=== PATIENT | female | born 1995 | race Caucasian/White ===

== ENCOUNTER 2016-12-01 00:13 | Inpatient (IN) | payer BC ==
[~2016-12-01] VITALS: Ht 152.4 cm; Wt 53.2 kg
[2016-12-01 00:22] VITALS: O2SAT 99
--- NOTE | 2016-12-01 00:44 | EMERGENCY ROOM VISIT NOTE ---
History Report prepared by Alfredito: Luz Chowdhury Under the Supervision of: Dr. Charmaine Licea D.O. First contact with patient: 00:19 Chief Complaint: ALCOHOL OVERDOSE Stated Complaint: ALCOHOL OVERDOSE History of Present Illness The patient is a 21 year old female who presents to the Emergency Room with complaints of an alcohol overdose that occurred prior to arrival. Per nursing staff, the patient was found outside the [facility] this evening arguing with a male friend. They note that the patient was brought to the emergency department and was found to have a Suboxone tablet in her purse that was not prescribed to her. The history is limited secondary to alcohol intoxication. Source of History: patient History Limited By: intoxication (alcohol) Onset: prior to arrival Position: other (global) Quality: other (alcohol overdose) Review of Systems The history is limited secondary to alcohol intoxication. Past Medical & Surgical Medical Problems: (1) Ovarian cyst Family History FHx: diabetes FHx: hypertension Social History Smoking Status: Former Smoker Alcohol Use: occasionally Drug Use: other Marital Status: in relationship Occupation Status: unemployed Current/Historical Medications No Active Prescriptions or Reported Meds Allergies Coded Allergies: No Known Allergies (Verified , 12/01/16) Physical Exam Vital Signs Date Time Temp Pulse Resp B/P Pulse Ox O2 Delivery O2 Flow Rate FiO2 12/01/16 05:16 100 16 109/55 97 Room Air 12/01/16 04:11 86 12/01/16 02:53 91 20 98 Room Air 12/01/16 01:48 89 18 114/78 96 12/01/16 00:23 90 12/01/16 00:22 36.9 92 17 120/84 99 Room Air 12/01/16 00:22 99 Room Air Physical Exam General: Unresponsive. HEENT: Head - normocephalic and atraumatic Pupils are 6 mm and sluggishly reactive to light. Extraocular eye muscles are intact, and sclera are anicteric. Nose - moist nasal mucosa without discharge. Mouth - moist buccal mucosa. Oropharynx is nonerythematous and there is no tonsillar exudate or edema noted. Neck: Supple; no JVD, nuchal rigidity, cervical lymphadenopathy. Heart: Regular rate and rhythm. There is a normal S1 and S2 with no murmurs, clicks, or gallops appreciated. Lungs: Snoring respirations, with no wheezes, rales, or rhonchi. Abdomen: Soft, completely nontender, nondistended, with good bowel sounds. There are no palpable pulsatile masses or hepatosplenomegaly. There is no guarding, rigidity, or rebound noted. Extremities: No evidence of cyanosis, clubbing, or edema. There are easily palpable peripheral pulses. Skin: warm and dry with good turgor and no rashes. Medical Decision & Procedures Laboratory Results 12/01/16 00:24 Test 12/01/16 00:24 12/01/16 01:55 Anion Gap 12.0 mmol/L (3-11) Est Creatinine Clear Calc Drug Dose 11.2 ml/min Estimated GFR () 141.5 Estimated GFR (Non- 122.1 BUN/Creatinine Ratio 8.4 (10-20) Calcium Level 8.4 mg/dl (8.5-10.1) Ethyl Alcohol mg/dL 318.0 mg/dl (0-3) Urine Opiates Screen NEG (NEG) Urine Methadone, Qualitative NEG (NEG) Urine Barbiturates NEG (NEG) Urine Phencyclidine (PCP) Level NEG (NEG) Ur Amphetamine/Methamphetamine NEG (NEG) MDMA (Ecstasy) Screen NEG (NEG) Urine Benzodiazepines Screen NEG (NEG) Urine Cocaine Metabolite NEG (NEG) Urine Marijuana (THC) NEG (NEG) Laboratory results per my review. ED Course 0029: Past medical records reviewed. The patient was evaluated in room A9B. A complete history and physical exam was performed. The patient was placed in the prone position to avoid aspiration. Laboratory studies were drawn as above. She was observed on the ekg monitor tech and pulse oximeter. She had no episodes of hypoxia. 0206: I reevaluated the patient and she is now wide awake. She states that she considers herself an alcoholic and has no interest in going to rehab at this time. The patient admits to taking Suboxone this evening that was not her's and states that she did it in attempt to hurt herself. She will be evaluated by [facility] when she is medically clear. 0250: The patient is currently awake, eating, and drinking. 0450: The patient is back to sleep at this time. She is hemodynamically stable. 0715: The patient was signed out to Dr. Colin at change of shift pending [facility] evaluation. Medical Decision The patient is a 21 year old female who presents to the ED with an alcohol overdose. Differential diagnosis includes alcohol overdose, drug intoxication, head injury, hypoglycemia Labs: alcohol 318, glucose 83, normal renal function The patient considers herself an alcoholic. She was drinking tonight and also abusing Suboxone. When questioned about this, she admitted that she may been trying to harm herself. She will remain here in the emergency department until she is more sober and can be evaluated by psychiatry. Impression Primary Impression: Alcohol overdose Additional Impression: Suicidal ideation Scribe Attestation The scribe's documentation has been prepared under my direction and personally reviewed by me in its entirety. I confirm that the note above accurately reflects all work, treatment, procedures, and medical decision making performed by me. Departure Information Dispostion Still a Patient Prescriptions No Active Prescriptions or Reported Meds Referrals Dm Dumont D.O. (PCP) Patient Instructions My [facility] [address] Problem Qualifiers
[2016-12-01 01:05] LABS: CREATININE 0.7 mg/dl (0.60-1.20)
[2016-12-01 01:06] LABS: BUN/CREATININE RATIO 8.4 (10-20); CALCIUM 8.4 mg/dl (8.5-10.1); POTASSIUM 3.4 mmol/L (3.5-5.1)
[2016-12-01 02:17] LABS: BENZODIAZEPINE, URINE NEG (NEG); COCAINE,URINE NEG (NEG); PHENCYCLIDINE, URINE NEG (NEG)
[2016-12-01 13:10] VITALS: O2SAT 97
[2016-12-01 14:32] LABS: ACETAMINOPHEN < 2 ug/ml (10-30); BUN/CREATININE RATIO 7.1 (10-20); CREATININE 0.85 mg/dl (0.60-1.20); POTASSIUM 4.1 mmol/L (3.5-5.1)
[2016-12-01 14:34] LABS: PREG INTERNAL NEGATIVE QC NEG CLEAR BACKGROUND; PREG INTERNAL POSITIVE QC POS CONTROL LINE
[2016-12-01 14:44] LABS: BASO % 0.1 %; BASO ABS # 0.01 K/uL (0-0.2); COMPLETE YES; HEMATOCRIT 47.4 % (37-47); IG% 0.3 %; LYMPH ABS # 1.53 K/uL (1.2-3.4); MEAN CELL VOLUME 91.7 fL (80-100); MEAN CORPUSCULAR HEMOGLOBIN 31.9 pg (25-34); MEAN CORPUSCULAR HGB CONC 34.8 g/dl (32-36); MEAN PLATELET VOLUME 9.1 fL (7.4-10.4); MONO % 8.8 %; NEUT % 69.8 %; PLATELET COUNT 327 K/uL (130-400); RED BLOOD COUNT 5.17 M/uL (4.2-5.4); WHITE BLOOD COUNT 7.64 K/uL (4.8-10.8)
[2016-12-01 14:49] LABS: ALB/GLOB RATIO 1.3 (0.9-2); THYROID STIMULATING HORMONE 0.645 uIu/ml (0.300-4.500)
--- NOTE | 2016-12-01 14:54 | EMERGENCY ROOM VISIT NOTE ---
ED Visit Note Patient signed out to me awaiting psychiatric evaluation. Mental health services have seen the patient from [facility]. She is being admitted to [facility]. is a 201.
[2016-12-01] MEDS ORDERED: NURSING VERBAL MED ORDER ONE ×3 (15:00→19:45)
[2016-12-01] MEDS ORDERED: ACETAMINOPHEN 325 MG TAB PO PRN (15:15)
[2016-12-01] MEDS ORDERED: MAGNESIUM HYDROXIDE SUSP 30 ML UDC PO PRN (15:15)
[2016-12-01] MEDS ORDERED: ALUMINUM/MAGNESIUM SUSP 30 ML UDC PO PRN (15:15)
[2016-12-01] MEDS ORDERED: BISMUTH SUBSALICYLATE PER ML OMNICELL CHARGE PO PRN (15:15)
[2016-12-01] MEDS ORDERED: SODIUM CHLORIDE 0.65% NA SOLN 45 ML (OCEAN) PRN (15:15)
[2016-12-01 16:01] VITALS: BP 111/78; PULSE 77; TEMP 37.2; Ht 152.4 cm; Wt 53.2 kg
[2016-12-01] MEDS ORDERED: CHLORDIAZEPOXIDE 25 MG CAP PO ONE (19:00)
[2016-12-01] MEDS: GABAPENTIN 600 MG TAB PO SCH (19:24)
[2016-12-01] MEDS: NICOTINE 21 MG/24 HR TDSY EXT SCH (20:37)
[2016-12-01 21:13] VITALS: BP 132/94; PULSE 68; TEMP 36.8
[2016-12-01] MEDS: hydrOXYzine HCL 25 MG TAB PO PRN (22:31)
[2016-12-02 07:03] VITALS: BP_SYST 131; BP_SYST 142; BP_DIAS 91; BP_DIAS 95; PULSE 66; PULSE 67; TEMP 36.4
[2016-12-02] MEDS: GABAPENTIN 600 MG TAB PO SCH ×3 (08:46→21:30)
[2016-12-02] MEDS: CHLORDIAZEPOXIDE 25 MG CAP PO SCH ×2 (08:46→14:36)
[2016-12-02] MEDS: NICOTINE 21 MG/24 HR TDSY EXT SCH (08:47)
[2016-12-02 09:12] VITALS: BP 130/90; PULSE 70; TEMP 36.6
[2016-12-02] MEDS ORDERED: SERTRALINE HCL 50 MG TAB PO ONE (10:15)
[2016-12-02] MEDS ORDERED: IBUPROFEN 600 MG TAB PO PRN (10:15)
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
[2016-12-02 14:36] VITALS: BP 130/96; PULSE 95; TEMP 36.4
[2016-12-02] MEDS ORDERED: LORAZEPAM 1 MG TAB PO PRN (16:45)
[2016-12-02 17:07] VITALS: BP 131/97; PULSE 80; TEMP 36.8
[2016-12-02 20:36] VITALS: BP 137/102; PULSE 76; TEMP 36.6
[2016-12-02] MEDS: CHLORHEXIDINE GLUCONATE 0.12% 480 ML MT SCH (21:29)
[2016-12-02] MEDS: hydrOXYzine HCL 25 MG TAB PO PRN (21:34)
[2016-12-03 07:05] VITALS: BP 121/78; PULSE 60; TEMP 36.6
[2016-12-03 08:29] VITALS: BP 130/89; TEMP 36.7
[2016-12-03] MEDS: NICOTINE 21 MG/24 HR TDSY EXT SCH (08:33)
[2016-12-03] MEDS: GABAPENTIN 600 MG TAB PO SCH ×2 (08:34→14:10)
[2016-12-03] MEDS: SERTRALINE HCL 50 MG TAB PO SCH (08:35)
[2016-12-03] MEDS: CHLORHEXIDINE GLUCONATE 0.12% 480 ML MT SCH ×2 (08:35→21:17)
[2016-12-03] MEDS: hydrOXYzine HCL 25 MG TAB PO PRN (12:23)
[2016-12-03 12:26] VITALS: BP 121/84; PULSE 70; TEMP 36.8
--- NOTE | 2016-12-03 13:03 | Psychiatric Progress Notes ---
Progress Note Date of Service Dec 03, 2016. Interval History Krysta Peck is a 21-year-old woman from [place], [place], admitted to our unit voluntarily with severe depression, polysubstance abuse, and feeling unable to be safe outside of the hospital. Chief Complaint "Pretty good, feeling better". Subjective Patient was seen & assessed interval progress reviewed with nursing. Staff report she has been attending programming, interacting appropriately with peers , and spending free time watching TV. Although scoring on the alcohol withdrawal protocol, she has not required when necessary medication. She is taking the gabapentin taper as ordered. She told nursing staff last night that even though she initially agreed to rehabilitation and referrals were made, she doesn't want to go and thinks the staff here are "blowing smoke up my ass." She had a family meeting with her father by phone today. The treatment recommendations were discussed, and the patient gave multiple excuses as to why she no longer will go to inpatient rehabilitation. She states that she is less anxious and feeling better after 2 doses of Zoloft, so does not think she will be tempted by drugs and alcohol after discharge. She became angry when encouraged to consider rehabilitation, rolling her eyes and accusing her father of not trusting her or believing in her. A great deal of time was devoted to this topic and the patient demonstrated very poor insight regarding her addictions. She signed releases for outpatient treatment providers. Her father confirmed that she does not of access to guns either at his home or her apartment. He is planning to come to [place] this weekend to visit with her potentially help with her discharge. The patient was seen shortly after the family meeting, and stated she was "anxious and irritable, they were pushing rehabilitation on me." She continues to complain that "no one trusts me , they don't believe in me," while at the same time demonstrating poor understanding of her addiction and a limited plan for staying sober outside the hospital. She says "I'm 21 and it's up to me, every once trying to push rehabilitation on me, but I wanted to outpatient. If I get on the proper medication I'll be fine, they just don't have trusted me at all." Attempted to reframe the concerns about her ability to stay sober and review data on success rates of different types of substance abuse treatment, with inpatient treatment clearly getting the best results. Her response was "I don't want to do it and I 'm not to do it, so appeared here to convince me, don't bother." She denies feeling suicidal today, but states she doesn't feel ready to leave, and wants to "work on my anxiety." We spent some time discussing what to expect with respect to worsening anxiety and sleep in the short-term while she is newly sober. Sleep Information Total Hours of Sleep: 6.50 Meal Information Percent of Breakfast Consumed: 100 Percent of Lunch Consumed: 100 Percent of Dinner Consumed: 60 Mental Status Exam During interview pt is: alert and oriented Appearance: appropriately dressed, disheveled Eye contact is: fair Motor behavior is: steady gait & station, no abnormal motor movements Speech: other (loud and angry) Affect: irritable Mood is: anxious Thought process: goal directed Thought content: cognitive distortions (centered around all the reasons why she doesn't need to go to rehabilitation) Suicidal thought are: denied Homicidal thoughts are: denied Hallucinations: denies auditory, denies visual Insight: poor Judgement: poor Impression A 21-year-old woman admitted to our unit voluntarily with depression, substance use and suicidality. The primary recommendation is for rehab for her polysubstance dependence, but she is refusing, saying she wants to go home and managed in her own way. She has also been using IV heroin and so has been screened for hepatitis B and C, but we will refer her to the [facility] for HIV or PCP testing post-discharge, as it will require follow-up. Although she is concerned that she has bipolar disorder, her periods of high energy and other symptoms are occurring during periods when she is using drugs, so we will therefore treat this as unipolar depression and she was started on sertraline on admission. He was counseled regarding the potential for activation if there is an underlying bipolar disorder. Her gums are extremely inflamed from poor dental hygiene, so have ordered Peridex mouthwash twice daily and encourage the use of ibuprofen p.r.n. At this time, however, she requires inpatient mental health treatment due to the severity of her condition and risk for self-harm if discharged. DIAGNOSES: 1. Major depressive disorder, recurrent, severe, without psychotic features. 2. Polysubstance dependence (opiates, cannabis, and alcohol). 3. Gingivitis. 4. IV drug use Plan (1) Suicidal ideation Every 15 minute checks for safety Encourage participation in unit groups and programming Work on healthy coping skills and her discharge safety plan Recommend abstinence from recreational drug use and alcohol Recommend avoidance of controlled substances, medications that are addictive, abusable, or dangerous in overdose (2) Depression 12/02 - Start Zoloft 25 mg today and increasing to 50 tomorrow. - Q. 15 minute checks for safety. - Encourage participation in group and individual counseling. - Family meeting with father. - Assist the patient to learn and utilize additional healthy coping strategies. - The patient will need psychiatric aftercare. 12/03 - Family meeting held with father. - Patient now refusing rehab, wants only outpatient treatment. (3) Alcohol overdose Resolved (4) Alcohol use disorder Monitor and treat for withdrawal Recommend inpatient rehab Recovery protocol. AWSS protocol with gabapentin taper and when necessary Ativan for symptoms of withdrawal 12/03 The patient's AUDIT score suggests problematic drinking (Zone III WHO). Brief intervention was offered Intervention was greater than 5 min in length. Brief interventions include: 1. Assess Readiness to Quit, 2. Advise: Help Patient to Reduce or Abstain from Alcohol, 3. Agree: Set Specific, Feasible Goals, 4. Assist: Anticipate barriers, Problem-Solving Solutions. Social work to 5. Arrange: Referrals to appropriate treatment. Summary of intervention: The patient is in contemplation stage with regards to transtheoretical model of change. The patient is advised to decrease alcohol consumption due to depressant effects and risk of interactions with prescription medications. The patient agreed to outpatient treatment, is refusing recommendations for inpatient rehabilitation, and will be provided with recovery materials to continue to education self on how to cope with their condition without drinking. (5) Cannabis abuse Rec rehab (6) Opiate abuse, continuous Abuses Suboxone, heroin, fentanyl REc rehab (7) Stimulant abuse Abuses meth, cocaine, ecstasy Rec milad (8) Gingivitis Peridex mouthwash b.i.d. and Ibuprofen p.r.n. for pain. Visit Code E&M Code: 27951 Data Vital Signs Last 24 Hrs: Date Time Temp Pulse Resp B/P Pulse Ox O2 Delivery O2 Flow Rate FiO2 12/03/16 12:26 36.8 70 16 121/84 70 12/03/16 08:29 36.7 14 130/89 12/03/16 07:05 36.6 60 16 121/78 60 12/02/16 20:36 36.6 76 14 137/102 12/02/16 17:07 36.8 80 14 131/97 12/02/16 14:36 36.4 95 16 130/96 Meds Administered Last 24 Hrs: Meds Administered (Past 24Hrs) Medications (Trade) Dose Ordered Sig/Bri Route Start Time Stop Time Status Last Admin Dose Admin Hydroxyzine HCl (Vistaril Tab) 50 mg HSZ PRN PO 12/01/16 15:15 12/31/16 15:14 12/02/16 21:34 50 MG Hydroxyzine HCl (Vistaril Tab) 25 mg Q4H PRN PO 12/01/16 15:15 12/31/16 15:14 12/03/16 12:23 25 MG Gabapentin (Neurontin Tab) 600 mg TID PO 12/01/16 19:00 12/03/16 14:01 12/03/16 08:34 600 MG Chlordiazepoxide (Librium Cap) 50 mg Taper TID PO 12/02/16 09:00 12/02/16 16:40 DC 12/02/16 14:36 50 MG Chlordiazepoxide (Librium Cap) 50 mg 1900 ONCE PO 12/01/16 19:00 12/02/16 16:40 DC 12/01/16 19:17 50 MG Nicotine (Nicoderm Cq 21MG Patch) 1 patch QAM EXT 12/01/16 20:00 12/31/16 19:59 12/03/16 08:33 1 PATCH Miscellaneous (Remove Nicoderm Patch) 1 ea QAM N/A 12/02/16 09:00 01/01/17 08:59 12/02/16 08:47 1 EA Sertraline HCl (Zoloft Tab) 50 mg QAM PO 12/03/16 09:00 01/02/17 08:59 12/03/16 08:35 50 MG Sertraline HCl (Zoloft Tab) 25 mg 1015 ONCE PO 12/02/16 10:15 12/02/16 10:32 DC 12/02/16 11:16 25 MG Chlorhexidine Gluconate (Peridex Oral Soln) 15 ml BID MT 12/02/16 22:00 01/01/17 21:59 12/03/16 08:35 15 ML
[2016-12-03 17:18] VITALS: BP_SYST 127; BP_SYST 130; BP_DIAS 90; BP_DIAS 91; PULSE 72; PULSE 86; TEMP 36.8
[2016-12-03] MEDS: GABAPENTIN 300 MG CAP PO SCH (21:16)
[2016-12-03 21:20] VITALS: BP_SYST 132; BP_SYST 134; BP_DIAS 88; BP_DIAS 99; PULSE 86; TEMP 36.6
[2016-12-03] MEDS ORDERED: NURSING VERBAL MED ORDER ONE (21:45)
[2016-12-03] MEDS ORDERED: LORAZEPAM 1 MG TAB PO STA (21:47)
[2016-12-04 07:06] VITALS: BP_SYST 131; BP_SYST 143; BP_DIAS 88; BP_DIAS 95; PULSE 73; PULSE 78; TEMP 36.6
[2016-12-04] MEDS: NICOTINE 21 MG/24 HR TDSY EXT SCH (07:55)
[2016-12-04] MEDS: CHLORHEXIDINE GLUCONATE 0.12% 480 ML MT SCH (07:56)
[2016-12-04] MEDS: SERTRALINE HCL 50 MG TAB PO SCH (07:58)
[2016-12-04] MEDS: GABAPENTIN 300 MG CAP PO SCH ×3 (07:58→18:20)
[2016-12-04 08:06] VITALS: BP 119/87; PULSE 83; TEMP 37
[2016-12-04] MEDS: hydrOXYzine HCL 25 MG TAB PO PRN (08:09)
[2016-12-04] MEDS ORDERED: NRN300 PO (09:17)
[2016-12-04] MEDS ORDERED: ZLF50 PO (09:17)
[2016-12-04] MEDS ORDERED: ATR25 PO (09:17)
--- NOTE | 2016-12-04 09:30 | Discharge Instructions ---
Discharge Information Report Includes Report will include the: Discharge Instructions & Summary Admission Admission Date / Time: Dec 01, 2016 at 15:03 Reason for Admission: Suicidal Ideation Discharge Discharge Diagnosis / Problem: Depressive disorder NOS, alcohol dependence Condition at Discharge: Good Discharge Goals Goal(s): Decrease discomfort, Improve disease control, Prevent Disease Progression Activity Recommendations Activity Limitations: resume your previous activity . Instructions / Follow-Up Instructions / Follow-Up . SPECIAL CARE INSTRUCTIONS: 1. Follow through with your scheduled aftercare appointments. If unable to keep an appointment, please call to reschedule. 2. Take your medication only as prescribed. Medication should not be changed or stopped without the approval of your doctor. In the event of worsening symptoms or concerns about side effects, contact your doctor immediately. 3. Utilize new healthy coping skills, anger management skills, and stress management skills learned during your hospitalization. Journal feelings and process them with a support person. Identify stressors or situations that may result in relapse, deterioration or inappropriate behaviors and develop a plan to deal with those issues. 4. If your coping skills are ineffective and you are in crisis, contact your outpatient providers for direction. If unable to reach your providers, please call the CAN HELP LINE AT or go to the closest Emergency Room. 5. Avoid alcohol and un-prescribed drugs. 6. You have been provided with the Mental Health Advance Directives Pamphlet for your review. AFTERCARE APPOINTMENTS: * Please call your insurance company prior to your scheduled appointment to confirm your aftercare providers are covered. Take your insurance information to your appointments. . Discharge / Aftercare Planning Psychiatrist: Name: Dr Sung Phone Number: [phone] Date of Appointment: Dec 28, 2016 Time of Appointment: 12:00 Appointment Notes: [address] [facility]- take mom's , SS and ID card w you Therapist: Name Of Therapist: Karin Gomez [facility] Phone Number: [phone] Date of Appointment: Dec 11, 2016 Time of Appointment: 830 am [facility]ment [facility] [place] . Follow-Up Care Plan for Follow-Up Care: The patient will have prompt follow up with her psychiatrist and with Karin for substance use counseling. Current Hospital Diet Patient's current hospital diet: Regular Diet Discharge Diet Recommended Diet: Regular Diet Procedures Procedures Performed: No Pending Studies Pending Studies at Discharge: No Medical Emergencies . Who to Call and When: Medical Emergencies: For questions or emergencies related to your hospital stay, please contact the Inpatient Behavioral Health Unit at [phone]. A process control operator is on-call 03/05 for the Behavioral Health Unit for emergencies At any time you feel your situation is an emergency, you may also call 911 immediately. . Non-Emergent Contact Non-Emergency issues call your: Psychiatrist, Therapist Advance Directives Existing Advance Directive: No Do You Have an Existing Mental: No Existing Living Will: No Existing Power of Cafeteria Cashier: No Advance Directives Info Given: To Pt/S.O. Discharge Summary Admission HPI Per the Admitting provider: Please see attached H&P Hospital Course (1) Suicidal ideation Every 15 minute checks for safety Encourage participation in unit groups and programming Work on healthy coping skills and her discharge safety plan Recommend abstinence from recreational drug use and alcohol Recommend avoidance of controlled substances, medications that are addictive, abusable, or dangerous in overdose (2) Depression 12/02 - Start Zoloft 25 mg today and increasing to 50 tomorrow. - Q. 15 minute checks for safety. - Encourage participation in group and individual counseling. - Family meeting with father. - Assist the patient to learn and utilize additional healthy coping strategies. - The patient will need psychiatric aftercare. 12/03 - Family meeting held with father. - Patient now refusing rehab, wants only outpatient treatment. (3) Alcohol overdose Resolved (4) Alcohol use disorder Monitor and treat for withdrawal Recommend inpatient rehab Recovery protocol. AWSS protocol with gabapentin taper and when necessary Ativan for symptoms of withdrawal 12/03 The patient's AUDIT score suggests problematic drinking (Zone III WHO). Brief intervention was offered Intervention was greater than 5 min in length. Brief interventions include: 1. Assess Readiness to Quit, 2. Advise: Help Patient to Reduce or Abstain from Alcohol, 3. Agree: Set Specific, Feasible Goals, 4. Assist: Anticipate barriers, Problem-Solving Solutions. Social work to 5. Arrange: Referrals to appropriate treatment. Summary of intervention: The patient is in contemplation stage with regards to transtheoretical model of change. The patient is advised to decrease alcohol consumption due to depressant effects and risk of interactions with prescription medications. The patient agreed to outpatient treatment, is refusing recommendations for inpatient rehabilitation, and will be provided with recovery materials to continue to education self on how to cope with their condition without drinking. (5) Cannabis abuse Rec rehab (6) Opiate abuse, continuous Abuses Suboxone, heroin, fentanyl REc rehab (7) Stimulant abuse Abuses meth, cocaine, ecstasy Rec milad (8) Gingivitis Peridex mouthwash b.i.d. and Ibuprofen p.r.n. for pain. Risk Factors Assessment : Yes /single/: Yes Higher / Fall in social status: No Access to guns: No Health problems: No Mental Health Diagnoses: Yes Substance use disorders: Yes Previous attempt: No Previous psychiatric stay: No Smoker: Yes Protective Factors Assessment Congregation beliefs: No : No Responsible for young children: No Employed: No Stable relationships: No Supportive family: Yes Day of Discharge Assessment COURSE OF HOSPITALIZATION: During the patient's 3 day stay, she was started on Zoloft 50 mg daily for mood and anxiety. She tolerated this without side effect. We also put her on the AWSS protocol for alcohol withdrawal using gabapentin. Her withdrawal symptoms were minimal. She did score several times requiring when necessary Ativan as well. Her primary recommendation during her stay was to go to rehabilitation which the patient consistently refused. She said that she felt she had confidence in giving up the medicines herself and would not be dissuaded from this. She was willing to participate in an IOP. Family meeting was held with her father during her stay. Her father was very forward about his believes that she needed to go to rehabilitation. Even with this encouragement she was unwilling to consider. She did feel like the meeting went well and she felt like her father was supportive. She denied any further suicidal thinking throughout her stay. Over the 3 days her mood gradually improved, she felt more in control. She did have anxiety throughout her stay likely recurrent related to both alcohol withdrawal and to her difficult social situation which includes recent breakup with the boyfriend, and being unemployed. DAY OF DISCHARGE ASSESSMENT: The patient is requesting discharge today. Her mood has been consistently good and without suicidal thinking. She denies withdrawal symptoms this morning although did score last evening on the AWSS scale and required Ativan. We will send her home on a gabapentin taper. I have encouraged her to continue to think about going to rehabilitation and in the event she decides to do so, to call her insurance to see who is in network and then call those facilities directly. She has worked on a safety plan here in the hospital. She will have her father pick her up today to transport her home. She voices commitment to remaining sober from drugs and alcohol and will participate in an IOP that will start next week. Today she is casually and appropriately dressed and groomed. Eye contact is good. Affect is restricted. Gait and station are within normal limits. Speech is of normal rate volume and tone. Thoughts are organized and goal directed. She denies thought disorder in the form of hallucinations or delusions. Recent and remote memory are intact per conversation. Intelligence is estimated to be average. Insight and judgment are improved over admission. Laboratory 12/01/16 13:09 Red Blood Count 5.17, Mean Corpuscular Volume 91.7, Mean Corpuscular Hemoglobin 31.9, Mean Corpuscular Hemoglobin Concent 34.8, Mean Platelet Volume 9.1, Neutrophils (%) (Auto) 69.8, Lymphocytes (%) (Auto) 20.0, Monocytes (%) (Auto) 8.8, Eosinophils (%) (Auto) 1.0, Basophils (%) (Auto) 0.1, Neutrophils # (Auto) 5.33, Lymphocytes # (Auto) 1.53, Monocytes # (Auto) 0.67, Eosinophils # (Auto) 0.08, Basophils # (Auto) 0.01 12/01/16 13:09 Test 12/01/16 01:55 12/01/16 13:00 12/01/16 13:06 12/01/16 13:09 Urine Opiates Screen NEG (NEG) Urine Methadone, Qualitative NEG (NEG) Urine Barbiturates NEG (NEG) Urine Phencyclidine (PCP) Level NEG (NEG) Ur Amphetamine/Methamphetamine NEG (NEG) MDMA (Ecstasy) Screen NEG (NEG) Urine Benzodiazepines Screen NEG (NEG) Urine Cocaine Metabolite NEG (NEG) Urine Marijuana (THC) NEG (NEG) Hepatitis B Surface Antigen NEG (NEG) Hepatitis C Antibody NEG (NEG) Ethyl Alcohol mg/dL 6.0 mg/dl (0-3) White Blood Count 7.64 K/uL (4.8-10.8) Red Blood Count 5.17 M/uL (4.2-5.4) Hemoglobin 16.5 g/dL (12.0-16.0) Hematocrit 47.4 % (37-47) Mean Corpuscular Volume 91.7 fL (80-100) Mean Corpuscular Hemoglobin 31.9 pg (25-34) Mean Corpuscular Hemoglobin Concent 34.8 g/dl (32-36) Platelet Count 327 K/uL (130-400) Mean Platelet Volume 9.1 fL (7.4-10.4) Neutrophils (%) (Auto) 69.8 % Lymphocytes (%) (Auto) 20.0 % Monocytes (%) (Auto) 8.8 % Eosinophils (%) (Auto) 1.0 % Basophils (%) (Auto) 0.1 % Neutrophils # (Auto) 5.33 K/uL (1.4-6.5) Lymphocytes # (Auto) 1.53 K/uL (1.2-3.4) Monocytes # (Auto) 0.67 K/uL (0.11-0.59) Eosinophils # (Auto) 0.08 K/uL (0-0.5) Basophils # (Auto) 0.01 K/uL (0-0.2) RDW Standard Deviation 42.5 fL (36.4-46.3) RDW Coefficient of Variation 12.7 % (11.5-14.5) Immature Granulocyte % (Auto) 0.3 % Immature Granulocyte # (Auto) 0.02 K/uL (0.00-0.02) Anion Gap 10.0 mmol/L (3-11) Est Creatinine Clear Calc Drug Dose 9.3 ml/min Estimated GFR () 111.9 Estimated GFR (Non- 96.6 BUN/Creatinine Ratio 7.1 (10-20) Calcium Level 9.0 mg/dl (8.5-10.1) Total Bilirubin 0.3 mg/dl (0.2-1) Aspartate Amino Transf (AST/SGOT) 42 U/L (15-37) Alanine Aminotransferase (ALT/SGPT) 68 U/L (12-78) Alkaline Phosphatase 84 U/L (45-117) Total Protein 7.2 gm/dl (6.4-8.2) Albumin 4.0 gm/dl (3.4-5.0) Globulin 3.2 gm/dl (2.5-4.0) Albumin/Globulin Ratio 1.3 (0.9-2) Thyroid Stimulating Hormone (TSH) 0.645 uIu/ml (0.300-4.500) Human Chorionic Gonadotropin, Qual NEG (NEG) Salicylates Level 2.2 mg/dl (2.8-20) Acetaminophen Level < 2 ug/ml (10-30) Total Time Total Time Spent (min): Greater than 30 minutes Total Time Included: examination of the patient, discharge planning, medication reconciliation, communication with other providers Tobacco Cessation at Discharge FDA approved Prescription: patient refused
[2016-12-04 11:09] VITALS: BP 123/88; PULSE 88; TEMP 36.9
[2016-12-04] MEDS ORDERED: LORAZEPAM 1 MG TAB PO ONE ×2 (11:15→16:30)
[2016-12-04 12:39] VITALS: BP 128/86; PULSE 91; TEMP 36.6
[2016-12-04] MEDS ORDERED: GABAPENTIN 300 MG CAP PO SCH ×3 (13:45→22:00)
[2016-12-04] MEDS ORDERED: SERTRALINE HCL 50 MG TAB PO SCH (13:45)
[2016-12-04 16:02] VITALS: BP 139/89; PULSE 116; TEMP 36.9
[2016-12-04] MEDS ORDERED: NURSING VERBAL MED ORDER ONE (16:30)
[2016-12-05] MEDS ORDERED: SERTRALINE HCL 50 MG TAB PO SCH (09:00)
== END 2016-12-04 18:40 | disposition home or self-care (01) | DRG 885 ==
LOC: EDBD 00:13 → C.EDA 00:14 → C.MHU 15:03
PROVIDERS: ADMIT Psychiatry & Neurology Psychiatry; ATTEND Psychiatry & Neurology Psychiatry
DX: F33.2 Major depressive disorder, recurrent severe without psychotic features (principal); R45.851 Suicidal ideations; F11.20 Opioid dependence, uncomplicated; F41.9 Anxiety disorder, unspecified; T51.0X2A Toxic effect of ethanol, intentional self-harm, initial encounter; Y92.89 Other specified places as the place of occurrence of the external cause; F10.229 Alcohol dependence with intoxication, unspecified; Y90.8 Blood alcohol level of 240 mg/100 ml or more; K05.10 Chronic gingivitis, plaque induced; F12.20 Cannabis dependence, uncomplicated; F17.210 Nicotine dependence, cigarettes, uncomplicated; Z81.8 Family history of other mental and behavioral disorders; Z81.1 Family history of alcohol abuse and dependence

== ENCOUNTER 2017-04-22 18:30 | Emergency (ER) | payer BC ==
[~2017-04-22] VITALS: Ht 152.4 cm; Wt 56.9 kg
[~2017-04-22 18:30] MED LIST: ATR25 PO; NRN300 PO; ZLF50 PO
[2017-04-22 18:32] VITALS: TEMP 36.7; Ht 152.4 cm; Wt 56.9 kg
[2017-04-22] MEDS ORDERED: KETOROLAC TROMETHAMINE 30 MG/ML VIAL IV STA (18:47)
[2017-04-22] MEDS ORDERED: AMPICILLIN/SULBACTAM SOD INJ 3,000 MG in SODIUM CHLORIDE 0.9% 100ML 100 ML IV STA (18:47)
[2017-04-22] MEDS ORDERED: SODIUM CHLORIDE 0.9% 1000ML 1,000 ML IV ONE (19:00)
[2017-04-22] MEDS ORDERED: IBUP-103 PO (19:19)
[2017-04-22 19:23] LABS: BASO % 0.1 %; BASO ABS # 0.01 K/uL (0-0.2); COMPLETE YES; EOS % 0.9 %; HEMATOCRIT 45.5 % (37-47); IG% 0.2 %; LYMPH % 16.6 %; LYMPH ABS # 1.58 K/uL (1.2-3.4); MEAN CELL VOLUME 91.2 fL (80-100); MEAN CORPUSCULAR HEMOGLOBIN 31.9 pg (25-34); MEAN CORPUSCULAR HGB CONC 34.9 g/dl (32-36); MEAN PLATELET VOLUME 9.1 fL (7.4-10.4); MONO % 11.8 %; NEUT % 70.4 %; PLATELET COUNT 286 K/uL (130-400); RED BLOOD COUNT 4.99 M/uL (4.2-5.4); WHITE BLOOD COUNT 9.54 K/uL (4.8-10.8)
[2017-04-22 19:46] LABS: BUN/CREATININE RATIO 16.2 (10-20); CALCIUM 9.6 mg/dl (8.5-10.1); CREATININE 0.67 mg/dl (0.60-1.20); POTASSIUM 3.8 mmol/L (3.5-5.1)
[2017-04-22 19:48] LABS: ALB/GLOB RATIO 1.3 (0.9-2)
[2017-04-22 20:32] VITALS: BP 116/79; PULSE 80; O2SAT 97
[2017-04-22] MEDS ORDERED: AMOX875T PO (20:34)
--- NOTE | 2017-04-22 22:30 | EMERGENCY ROOM VISIT NOTE ---
History First contact with patient: 18:36 Chief Complaint: DENTAL PAIN Stated Complaint: SWOLLEN MOUTH,THROBING PAIN Nursing Triage Summary: Pt states, "My mouth has been hurting me since Tu and it is really swollen. I can barely open it. The past two years the back two molars on the left side on the upper have been decaying." Has not contacted a dentist. History of Present Illness The patient is a 21 year old female who presents to the Emergency Room with complaints of dental pain worsening over the past 48 hours. The patient has facial swelling today and rates her discomfort a 9/10. The patient does not have a dentist appointment scheduled. She does not report having a fever at home. She is having difficulty fully opening her jaw as this does cause pain in the left side of her face. She is without breathing difficulties. Review of Systems More than 10 systems were reviewed and otherwise negative with the exception of history of present illness. Past Medical/Surgical History Medical Problems: (1) Alcohol use disorder (2) Cannabis abuse (3) Depression (4) Gingivitis (5) Opiate abuse, continuous (6) Ovarian cyst (7) Stimulant abuse Family History FHx: diabetes FHx: hypertension Social History Smoking Status: Current Every Day Smoker Alcohol Use: occasionally Drug Use: other Marital Status: in relationship Occupation Status: unemployed Current/Historical Medications Scheduled Amoxicillin & Pot Clavulanate (Augmentin 875-125 mg), 1 TAB PO BID Ibuprofen Tab (Advil), 400 MG PO PRN UD Allergies Coded Allergies: No Known Allergies (Verified , 12/01/16) Physical Exam Vital Signs Date Time Temp Pulse Resp B/P (MAP) Pulse Ox O2 Delivery O2 Flow Rate FiO2 04/22/17 20:32 80 20 116/79 97 Room Air 04/22/17 18:32 36.7 107 18 137/87 98 Room Air Pain Rating (0-10): 5.0 Physical Exam VITALS: Vitals are noted on the nurse's note and reviewed by myself. Vital signs with tachycardia GENERAL: Well-developed, well-nourished, white female, who is in no acute distress and resting comfortably. Patient is cooperative with the examination. HEAD: Normocephalic atraumatic. EARS: External ear normal. External auditory canals clear, tympanic membranes pearly whitten without erythema or effusion bilaterally. EYES: Pupils equal round and reactive to light and accommodation. Conjunctivae without injection, sclerae without icterus. Extraocular movements intact. NOSE: Patent, turbinates without inflammation or discharge. MOUTH: Mucous membranes moist. Tonsils are not enlarged. Pharynx without erythema, blood, or exudate. Uvula midline. Airway patent. The left upper molars #15 and 16 teeth are very carious with gumline edema. There is no obvious abscess. No Shawn's. There is obvious left-sided facial swelling on exam without fluctuance NECK: Supple without nuchal rigidity. No lymphadenopathy. No thyromegaly. Cervical spine is nontender. HEART: Regular rate and rhythm without murmurs gallops or rubs. LUNGS: Clear to auscultation bilaterally without wheezes, rales or rhonchi. No retractions or accessory muscle use. Medical Decision & Procedures Laboratory Results 04/22/17 19:00 Red Blood Count 4.99, Mean Corpuscular Volume 91.2, Mean Corpuscular Hemoglobin 31.9, Mean Corpuscular Hemoglobin Concent 34.9, Mean Platelet Volume 9.1, Neutrophils (%) (Auto) 70.4, Lymphocytes (%) (Auto) 16.6, Monocytes (%) (Auto) 11.8, Eosinophils (%) (Auto) 0.9, Basophils (%) (Auto) 0.1, Neutrophils # (Auto ) 6.71, Lymphocytes # (Auto) 1.58, Monocytes # (Auto) 1.13, Eosinophils # (Auto ) 0.09, Basophils # (Auto) 0.01 04/22/17 19:00 Test 04/22/17 19:00 White Blood Count 9.54 K/uL (4.8-10.8) Red Blood Count 4.99 M/uL (4.2-5.4) Hemoglobin 15.9 g/dL (12.0-16.0) Hematocrit 45.5 % (37-47) Mean Corpuscular Volume 91.2 fL (80-100) Mean Corpuscular Hemoglobin 31.9 pg (25-34) Mean Corpuscular Hemoglobin Concent 34.9 g/dl (32-36) Platelet Count 286 K/uL (130-400) Mean Platelet Volume 9.1 fL (7.4-10.4) Neutrophils (%) (Auto) 70.4 % Lymphocytes (%) (Auto) 16.6 % Monocytes (%) (Auto) 11.8 % Eosinophils (%) (Auto) 0.9 % Basophils (%) (Auto) 0.1 % Neutrophils # (Auto) 6.71 K/uL (1.4-6.5) Lymphocytes # (Auto) 1.58 K/uL (1.2-3.4) Monocytes # (Auto) 1.13 K/uL (0.11-0.59) Eosinophils # (Auto) 0.09 K/uL (0-0.5) Basophils # (Auto) 0.01 K/uL (0-0.2) RDW Standard Deviation 42.9 fL (36.4-46.3) RDW Coefficient of Variation 12.9 % (11.5-14.5) Immature Granulocyte % (Auto) 0.2 % Immature Granulocyte # (Auto) 0.02 K/uL (0.00-0.02) Anion Gap 7.0 mmol/L (3-11) Est Creatinine Clear Calc Drug Dose 103.2 ml/min Estimated GFR () 143.6 Estimated GFR (Non- 123.9 BUN/Creatinine Ratio 16.2 (10-20) Calcium Level 9.6 mg/dl (8.5-10.1) Total Bilirubin 0.8 mg/dl (0.2-1) Aspartate Amino Transf (AST/SGOT) 21 U/L (15-37) Alanine Aminotransferase (ALT/SGPT) 32 U/L (12-78) Alkaline Phosphatase 113 U/L (45-117) Total Protein 8.1 gm/dl (6.4-8.2) Albumin 4.5 gm/dl (3.4-5.0) Globulin 3.6 gm/dl (2.5-4.0) Albumin/Globulin Ratio 1.3 (0.9-2) Medications Administered Medications (Trade) Dose Ordered Sig/Bri Route Start Time Stop Time Status Last Admin Dose Admin Ampicillin Sodium/ Sulbactam Sodium 3000 mg/Sodium Chloride 108 ml @ 200 mls/hr NOW STAT IV 04/22/17 18:47 04/22/17 19:19 DC 04/22/17 19:52 200 MLS/HR Ketorolac Tromethamine (Toradol Inj) 30 mg NOW STAT IV 04/22/17 18:47 04/22/17 18:49 DC 04/22/17 19:34 30 MG Sodium Chloride 1,000 ml @ 999 mls/hr Q1H1M ONCE IV 04/22/17 19:00 04/22/17 20:00 DC 04/22/17 19:34 999 MLS/HR ED Course Physical exam and history were performed. Nursing notes, EMR, and Medication List were personally reviewed. Patient appears to have left sided facial swelling in the context of a dental infection. I do not appreciate obvious abscess for drainage. The patient is slightly tachycardic on exam and is afebrile. IV access was established and labs were obtained. Lactic acid and cultures were gathered as well. The patient was given IV Unasyn and IV Toradol. The patient's blood work is as above and she is without a significantly elevated white blood cell count, gross anemia, bandemia, or significant electrolyte imbalance. Lactic was negative with cultures pending. Overall the patient appears stable for discharge home. I suspect that her symptoms are related to the dental infection. She does not appear septic and should do well with outpatient antibiotics. She will be given a course of Augmentin. She is to contact a dentist as soon as possible for definitive care. She was otherwise invited back to the ER with any new, worsening, or concerning symptoms. The chart was completed utilizing [employer] Speech Voice Recognition Software. Grammatical errors, random word insertions, pronoun errors, and incomplete sentences are an occasional consequence of this system due to software limitations, ambient noise, and hardware issues. Any formal questions or concerns about the content, text, or information contained within the body of this dictation should be directly addressed to the provider for clarification. . Medical Decision Differential diagnosis: Etiologies such as cellulitis, abscess, MRSA infection, DVT, necrotizing fasciitis, dermatitis, drug eruption, as well as others were entertained.. Impression Primary Impression: Dental infection Additional Impression: Facial swelling Departure Information Dispostion Home / Self-Care Condition GOOD Prescriptions Amoxicillin & Pot Clavulanate (Augmentin 875-125 mg) 1 Tab Tab 1 TAB PO BID for 7 Days, #14 TAB Prov: Ranjeet Rodriguez PA-C 04/22/17 Forms HOME CARE DOCUMENTATION FORM, IMPORTANT VISIT INFORMATION Patient Instructions My [facility] Additional Instructions You were seen and evaluated today on an emergency basis only. This is not a substitute for, or an effort to provide, complete comprehensive medical care. It is not possible to recognize and treat all injuries or illnesses in a single emergency department visit. For this reason it is recommended that you followup with a dentist as soon as possible for definitive care. For baseline pain relief you may alternate ibuprofen and acetaminophen every 4 hours for pain control. Take 600 mg ibuprofen (Advil) and then 4 hours later take 1000 mg acetaminophen (Tylenol). Do not take more than 3000 mg acetaminophen in a single day. Amoxicillin Clavulanate (Augmentin) 875mg: Take one pill twice daily for 7 days for your infection. All antibiotics can cause diarrhea. If this occurs and you feel worse or it does not resolve in 1-2 days follow up with your doctor or return to the Emergency Department as this could be signs of serious underlying problems. Any medication can cause an allergic reaction, stop the pills immediately and return to the ER for rash, hives, breathing difficulties, or swelling. You are welcome to return to the emergency department anytime with new, worsening, or concerning symptoms. Problem Qualifiers
== END 2017-04-22 20:47 | disposition home or self-care (01) ==
LOC: C.EDB 18:32 → C.EDD 20:47
DX: K08.89 Other specified disorders of teeth and supporting structures (principal); R22.0 Localized swelling, mass and lump, head; F12.90 Cannabis use, unspecified, uncomplicated; F32.9 Major depressive disorder, single episode, unspecified; F11.10 Opioid abuse, uncomplicated; Z83.3 Family history of diabetes mellitus; Z82.49 Family history of ischemic heart disease and other diseases of the circulatory system; F17.200 Nicotine dependence, unspecified, uncomplicated